=== PATIENT | male | born 1960 | race Caucasian/White ===

== ENCOUNTER 2022-01-03 09:44 | Emergency (ER) | payer BC, OTHER ==
[2022-01-03] MEDS ORDERED: Aspirin 81 MG Tab.Chew PO ONE (09:56)
[2022-01-03 10:32] LABS: BLOOD UREA NITROGEN,BUN 20 mg/dL (7.0-18.0); CARBON DIOXIDE,CO2 26.7 mmol/L (21.0-32.0); CHLORIDE,CL 100 mmol/L (98-107); GLUCOSE RANDOM 101 mg/dL (74-106); POTASSIUM,K 4.6 mmol/L (3.5-5.1); SODIUM,NA 135 mmol/L (136-148)
[2022-01-03 10:33] LABS: ESTIMATED GFR 98 mL/min (>60)
[2022-01-03] MEDS ORDERED: Lidocaine 5% 700 MG Patch TRDERM ONE (11:02)
== END 2022-01-03 11:38 | disposition home or self-care (01) ==
LOC: MW.ED 09:44
DX: R07.89 Other chest pain (principal); Z20.822 Contact with and (suspected) exposure to COVID-19
CPT/HCPCS: 36415; 71045; 80053; 83735; 84484; 85025; 85610; 87635; 93005; 99285; A9270; U0002

== ENCOUNTER 2023-07-25 14:49 | Emergency (ER) | payer OTHER ==
[2023-07-25 15:28] LABS: BASOPHILS ABSOLUTE AUTO 0.07 K/uL (0.00-0.20); BASOPHILS PERCENT AUTO 0.8 % (0.0-1.0); EOSINOPHILS ABSOLUTE AUTO 0.19 K/uL (0.00-0.45); EOSINOPHILS PERCENT AUTO 2.1 % (0.0-6.0); HEMATOCRIT 43.4 % (42.0-52.0); HEMOGLOBIN 15.5 g/dL (14.0-18.0); IMMATURE GRAN ABSOLUTE AUTO 0.02 K/uL (0.00-0.05); IMMATURE GRAN PERCENT AUTO 0.2 % (0.0-0.4); LYMPHOCYTES ABSOLUTE AUTO 1.24 K/uL (1.00-4.80); LYMPHOCYTES PERCENT AUTO 13.4 % (24.0-44.0); MEAN CORPUSCULAR HEMOGLOBIN 32.3 pg (28.0-32.0); MEAN CORPUSCULAR HGB CONC 35.7 g/dL (32.0-36.0); MEAN CORPUSCULAR VOLUME 90.4 fL (83.0-99.0); MONOCYTES ABSOLUTE AUTO 0.71 K/uL (0.00-0.80); MONOCYTES PERCENT AUTO 7.7 % (0.0-8.0); NEUTROPHILS ABSOLUTE AUTO 6.99 K/uL (1.80-7.70); NEUTROPHILS PERCENT AUTO 75.8 % (41.0-71.0); PLATELET COUNT,PLT 176 K/uL (150-400); WHITE BLOOD CELL COUNT,WBC 9.22 K/uL (3.9-11.3)
[2023-07-25] MEDS: Alum Hydro/Mag Hydro/Simeth XS 15 ML, Lidocaine 2% 5 ML PO STA (15:33)
[2023-07-25] MEDS: Albuterol/Ipratropium 3.0-0.5 MG/3 ML Neb Soln NEB STA (15:35)
[2023-07-25] MEDS: Sodium Chloride 0.9% 2.5 ML Syringe FLUSH PRN (15:35)
[2023-07-25] MEDS: Sodium Chloride 0.9% 10 ML Syringe FLUSH PRN (15:35)
[2023-07-25 15:53] LABS: A/G RATIO 1.1 (0.9-1.6); ALBUMIN 3.9 g/dL (3.4-5.0); BILIRUBIN TOTAL 1.8 mg/dL (0.2-1.0); CALCIUM 8.7 mg/dL (8.5-10.1); CARBON DIOXIDE,CO2 24.9 mmol/L (21.0-32.0); CREATININE 1.2 mg/dL (0.8-1.3); EST CRCL DRUG DOSING (CG) 67.59 mL/min; POTASSIUM,K 3.8 mmol/L (3.5-5.1); PROTEIN TOTAL,TP 7.6 g/dL (6.4-8.2)
[2023-07-25 16:07] LABS: CORONAVIRUS COVID-19 NAA NEGATIVE (NEGATIVE); INFLUENZA A NAA NEGATIVE (NEGATIVE); INFLUENZA B NAA NEGATIVE (NEGATIVE); RESPIRATORY SYNCYTIAL VIR NAA NEGATIVE (NEGATIVE)
== END 2023-07-25 16:52 | disposition home or self-care (01) ==
LOC: MW.ED 14:49
DX: J02.9 Acute pharyngitis, unspecified (principal); F17.210 Nicotine dependence, cigarettes, uncomplicated; Z77.22 Contact with and (suspected) exposure to environmental tobacco smoke (acute) (chronic)
CPT/HCPCS: 0241U; 36415; 71046; 80053; 83690; 84484; 85025; 99285; A9270; J3490; 93010; 99283; J7620-GY